=== PATIENT | male | born 1980 | race Caucasian/White ===

== ENCOUNTER 2017-11-16 19:22 | Emergency (ER) | payer OTHER ==
[~2017-11-16] VITALS: Ht 185.4 cm; Wt 127.0 kg
[2017-11-16] MEDS ORDERED: ATARAX,VISTARIL50 MG PO (20:26)
[2017-11-16] MEDS ORDERED: Kenalog 0.5% Cr15 GM T (20:26)
[2017-11-16] MEDS ORDERED: KEFLEX500 M1 PO (20:26)
== END 2017-11-16 20:49 | disposition home or self-care (01) ==
LOC: ED 19:22
DX: S40.862A Insect bite (nonvenomous) of left upper arm, initial encounter (principal); S60.862A Insect bite (nonvenomous) of left wrist, initial encounter; I89.1 Lymphangitis; W57.XXXA Bitten or stung by nonvenomous insect and other nonvenomous arthropods, initial encounter; Y93.89 Activity, other specified; Y92.89 Other specified places as the place of occurrence of the external cause; Y99.9 Unspecified external cause status

== ENCOUNTER 2017-12-28 12:43 | Emergency (ER) | payer OTHER ==
[~2017-12-28] VITALS: Ht 182.8 cm; Wt 129.3 kg
[~2017-12-28 12:43] MED LIST: ATARAX,VISTARIL50 MG PO; KEFLEX500 M1 PO; Kenalog 0.5% Cr15 GM T
[2017-12-28 13:08] LABS: BASO # 0.1 10*3/uL (0.0-0.1); BASO % 0.9 % (0.0-1.0); EOS # 0.3 10*3/uL (0.0-0.4); EOS % 3.6 % (1.0-4.0); HEMOGLOBIN 16.2 g/dl (14.0-18.0); LYMPH # 2.4 10*3/uL (1.3-4.4); LYMPH % 34.2 % (27.0-41.0); MEAN CELL VOLUME 80.9 fl (80.0-94.0); MEAN CORPUSCULAR HGB 27.9 pg (27.0-31.0); MEAN CORPUSCULAR HGB CONC 34.5 g/dl (33.0-37.0); MEAN PLATELET VOLUME 9.4 fl (9.6-12.3); MONO # 0.4 10*3/uL (0.1-1.0); MONO % 5.3 % (3.0-9.0); NEUT # 3.9 10*3/uL (2.3-7.9); NEUT % 55.7 % (47.0-73.0); PLATELET COUNT AUTOMATED 247 10*3/uL (130-400); RED BLOOD COUNT 5.81 10*6/uL (4.50-5.90); RED CELL DISTRI WIDTH 12.7 % (0-14.5); WHITE BLOOD COUNT 6.9 10*3/uL (4.8-10.8)
[2017-12-28 13:23] LABS: ALBUMIN 4.4 gm/dl (3.1-4.5); ALKALINE PHOSPHATASE 84 U/L (45-117); BUN 15 mg/dl (7-24); CHLORIDE 101 mmol/L (98-107); CREATININE 1.35 mg/dL (0.70-1.30); POTASSIUM 4.2 mmol/L (3.5-5.1); SGOT/AST 38 IU/L (3-35); SGPT/ALT 108 U/L (12-78); SODIUM 136 mmol/L (136-145); TOTAL PROTEIN 8.1 gm/dL (6.4-8.2)
[2017-12-28] MEDS ORDERED: ZOFRAN ODT4 MG SL (13:44)
== END 2017-12-28 14:19 | disposition home or self-care (01) ==
LOC: ED 12:43
PROVIDERS: Emergency Medicine
DX: E11.65 Type 2 diabetes mellitus with hyperglycemia (principal); Z79.4 Long term (current) use of insulin

== ENCOUNTER 2018-09-12 18:16 | Emergency (ER) | payer OTHER ==
[~2018-09-12] VITALS: Ht 185.4 cm; Wt 129.3 kg
--- NOTE | ~2018-09-12 | EKG ---
[place], [place] ELECTROCARDIOGRAM REPORT NAME: YOHANNES ARTEAGA UNIT #: [id number] ROOM: DOCTOR: EPIPHANY DRAFT REPORT BIRTHDATE: [birth year] [facility] Test Date: 2018-09-12 Test Time: 19:41:22 Pat Name: YOHANNES ARTEAGA Department: Room: Gender: Book Solicitor: Lisa Wood : 1980 Requested By: BISHOP LAZCANO Order Number: [id number] Reading MD: Troy Lam MD Measurements Intervals Nursery Rate: 107 P: 32 ND: 131 QRS: 44 QRSD: 99 T: 48 QT: 323 QTc: 431 Interpretive Statements Sinus tachycardia No previous ECG available for comparison Electronically Signed On 09-12-2018 20:14:29 PDT by Troy Lam MD CM:EKGRPT:ELECTROCARDIOGRAM REPORT 40 13 [employer] JULIAN DRAFT REPORT BISHOP LAZCANO DO
[~2018-09-12 18:16] MED LIST changes: +ZOFRAN ODT4 MG SL
[2018-09-12 19:41] LABS: BASO # 0.1 10*3/uL (0.0-0.1); BASO % 0.8 % (0.0-1.0); EOS # 0.5 10*3/uL (0.0-0.4); EOS % 5.6 % (1.0-4.0); HEMOGLOBIN 16.7 g/dl (14.0-18.0); LYMPH # 2.6 10*3/uL (1.3-4.4); LYMPH % 31.2 % (27.0-41.0); MEAN CELL VOLUME 82.2 fl (80.0-94.0); MEAN CORPUSCULAR HGB 28.6 pg (27.0-31.0); MEAN CORPUSCULAR HGB CONC 34.8 g/dl (33.0-37.0); MEAN PLATELET VOLUME 9.1 fl (9.6-12.3); MONO # 0.4 10*3/uL (0.1-1.0); NEUT # 4.7 10*3/uL (2.3-7.9); NEUT % 56.4 % (47.0-73.0); PLATELET COUNT AUTOMATED 240 10*3/uL (130-400); RED BLOOD COUNT 5.84 10*6/uL (4.50-5.90); RED CELL DISTRI WIDTH 13.2 % (0-14.5); WHITE BLOOD COUNT 8.4 10*3/uL (4.8-10.8)
[2018-09-12 19:57] LABS: ALBUMIN 4.1 gm/dl (3.1-4.5); ALKALINE PHOSPHATASE 82 U/L (45-117); BUN 14 mg/dl (7-24); CHLORIDE 103 mmol/L (98-107); CREATININE 1.19 mg/dL (0.70-1.30); POTASSIUM 4.3 mmol/L (3.5-5.1); SGOT/AST 50 IU/L (3-35); SGPT/ALT 152 U/L (12-78); SODIUM 139 mmol/L (136-145); TOTAL PROTEIN 8.2 gm/dL (6.4-8.2)
[2018-09-12 19:58] LABS: TROPONIN I < 0.015 ng/ml (<0.045)
[2018-09-12] MEDS ORDERED: PREDNISONE50 MG PO (20:08)
== END 2018-09-12 20:17 | disposition home or self-care (01) ==
LOC: ED 18:16
PROVIDERS: Student in an Organized Health Care Education/Training Program
DX: J45.901 Unspecified asthma with (acute) exacerbation (principal); E11.9 Type 2 diabetes mellitus without complications; R00.0 Tachycardia, unspecified; Z79.2 Long term (current) use of antibiotics; Z79.899 Other long term (current) drug therapy

== ENCOUNTER 2019-06-19 22:49 | Inpatient (IN) | payer OTHER ==
[~2019-06-19] VITALS: Ht 185.4 cm; Wt 134.9 kg
--- NOTE | ~2019-06-19 | EKG ---
[place], [place] ELECTROCARDIOGRAM REPORT NAME: YOHANNES ORO UNIT #: [id number] ROOM: 405 DOCTOR: JOJO DRAFT REPORT BIRTHDATE: [birth year] [facility] Test Date: 2019-06-20 Test Time: 00:20:02 Pat Name: YOHANNES ORO Department: Room: 405 Gender: M [employer]oles[employer] Broker: Maral Hadley : 1980 Requested By: BARON MUSE Order Number: [id number] Reading MD: Trang Oro MD Measurements Intervals [place] Rate: 112 P: 44 KS: 138 QRS: 36 QRSD: 108 T: -1 QT: 331 QTc: 452 Interpretive Statements Sinus tachycardia Probable inferior infarct, age indeterminate Baseline wander in lead(s) V2 Compared to ECG 09/12/2018 19:41:22 Myocardial infarct finding now present Electronically Signed On 06-21-2019 12:27:44 PDT by Trang Oro MD CM:EKGRPT:ELECTROCARDIOGRAM REPORT 0020 1227 BARON MUSE MD EPIPHANY DRAFT REPORT BARON MUSE MD
[~2019-06-19 22:49] MED LIST changes: +PREDNISONE50 MG PO
[2019-06-19 22:51] VITALS: BP 157/104
[2019-06-19 23:14] VITALS: BP 144/101
[2019-06-19 23:26] LABS: BILIRUBIN NEGATIVE (NEGATIVE); BLOOD NEGATIVE (NEGATIVE); CLARITY CLEAR (CLEAR); COLOR YELLOW (YELLOW); GLUCOSE 3+ (NEGATIVE); KETONE TRACE (NEGATIVE); LEUKO ESTERASE NEGATIVE (NEGATIVE); NITRITE NEGATIVE (NEGATIVE); SPECIFIC GRAVITY 1.015 (1.005-1.030); UROBILINOGEN 0.2 E.U./dl (0.2-1.0)
[2019-06-19 23:32] LABS: BACTERIA TRACE; EPITHELIAL CELLS 0-2; RBC 0-2 rbc/hpf (0-2); WBC 0-2 wbc/hpf (0-5)
[2019-06-20 00:01] LABS: BASO % 0.6 % (0.0-1.0); EOS # 0.2 10*3/uL (0.0-0.4); EOS % 2.9 % (1.0-4.0); HEMATOCRIT 43.8 % (42.0-52.0); HEMOGLOBIN 15.2 g/dl (14.0-18.0); LYMPH # 2.2 10*3/uL (1.3-4.4); MEAN CELL VOLUME 83.4 fl (80.0-94.0); MEAN CORPUSCULAR HGB CONC 34.7 g/dl (33.0-37.0); MEAN PLATELET VOLUME 9.3 fl (9.6-12.3); MONO # 0.4 10*3/uL (0.1-1.0); MONO % 5.7 % (3.0-9.0); NEUT # 3.7 10*3/uL (2.3-7.9); PLATELET COUNT AUTOMATED 242 10*3/uL (130-400); RED BLOOD COUNT 5.25 10*6/uL (4.50-5.90); RED CELL DISTRI WIDTH 12.3 % (0-14.5); WHITE BLOOD COUNT 6.5 10*3/uL (4.8-10.8)
[2019-06-20 00:12] LABS: ACT PARTIAL THROMBO TIME 24.5 SECONDS (20.0-32.1); INTERNATIONAL NORM RATIO 0.9 (2.0-3.5)
[2019-06-20 00:17] LABS: ALBUMIN 3.9 gm/dl (3.1-4.5); ALKALINE PHOSPHATASE 103 U/L (45-117); BUN 12 mg/dl (7-24); CHLORIDE 103 mmol/L (98-107); CREATININE 1.07 mg/dL (0.70-1.30); LIPASE 168 U/L (73-393); POTASSIUM 3.7 mmol/L (3.5-5.1); SGOT/AST 36 IU/L (3-35); SGPT/ALT 122 U/L (12-78); SODIUM 134 mmol/L (136-145); TOTAL PROTEIN 7.3 gm/dL (6.4-8.2)
[2019-06-20 00:18] LABS: TROPONIN I < 0.015 ng/ml (<0.045)
[2019-06-20 00:30] VITALS: BP 140/98
[2019-06-20 02:05] VITALS: BP 156/94; BP 157/94
[2019-06-20] MEDS ORDERED: BASAG SOL SQ (02:43)
[2019-06-20] MEDS ORDERED: OMEPRAZOLE D/R20 MG PO (02:44)
[2019-06-20] MEDS ORDERED: LISINOPRIL30 MG PO (02:44)
[2019-06-20] MEDS ORDERED: GABAPENTIN400 MG PO (02:44)
[2019-06-20] MEDS ORDERED: BUSPIRONE HCL15 MG PO (02:45)
[2019-06-20] MEDS ORDERED: VICTOZA 3-PAK6 MG/ML SC (02:46)
[2019-06-20] MEDS ORDERED: ATORVASTATIN CA20 M1 PO (02:47)
[2019-06-20] MEDS ORDERED: CLONIDINE0.3 MG PO (02:48)
[2019-06-20] MEDS ORDERED: MIRTAZAPINE15 M2 PO (02:49)
[2019-06-20] MEDS ORDERED: LAMOTRIGINE100 MG PO (02:49)
[2019-06-20] MEDS ORDERED: ARIPIPRAZOLE20 MG PO (02:50)
[2019-06-20] MEDS ORDERED: FLUTICASONE-SA1 EAC3 INH (02:51)
[2019-06-20 06:52] LABS: BASO % 0.6 % (0.0-1.0); EOS # 0.2 10*3/uL (0.0-0.4); HEMATOCRIT 40.9 % (42.0-52.0); HEMOGLOBIN 13.9 g/dl (14.0-18.0); LYMPH % 31.9 % (27.0-41.0); MEAN CELL VOLUME 83.5 fl (80.0-94.0); MEAN CORPUSCULAR HGB 28.4 pg (27.0-31.0); MEAN PLATELET VOLUME 9.2 fl (9.6-12.3); MONO # 0.6 10*3/uL (0.1-1.0); MONO % 8.9 % (3.0-9.0); NEUT # 3.4 10*3/uL (2.3-7.9); NEUT % 54.3 % (47.0-73.0); PLATELET COUNT AUTOMATED 208 10*3/uL (130-400); RED CELL DISTRI WIDTH 12.4 % (0-14.5); WHITE BLOOD COUNT 6.3 10*3/uL (4.8-10.8)
[2019-06-20 07:10] LABS: ACT PARTIAL THROMBO TIME 25.1 SECONDS (20.0-32.1); INTERNATIONAL NORM RATIO 0.9 (2.0-3.5)
[2019-06-20 07:15] LABS: BUN 13 mg/dl (7-24); CHLORIDE 107 mmol/L (98-107); POTASSIUM 3.7 mmol/L (3.5-5.1); SODIUM 139 mmol/L (136-145)
[2019-06-20 07:20] LABS: CHOLESTEROL 169 mg/dL (<200); HDL CHOLESTEROL 34 mg/dl (40-60); LDL CHOLESTEROL 93 mg/dL (9-159); PHOSPHOROUS 3.9 mg/dL (2.5-4.9); TRIGLYCERIDES 212 mg/dl (<150); VLDL CHOLESTEROL 42 mg/dL (6-40)
[2019-06-20 08:00] VITALS: BP 150/92
--- NOTE | 2019-06-20 11:30 | NUR ---
BSG 295. 10 UNITS OF INSULIN GIVEN PER S/S. WILL CONTINUE TO MONITOR.
--- NOTE | 2019-06-20 11:34 | NUR ---
IN TO SEE PATIENT.
[2019-06-20 11:36] LABS: VITAMIN D, 25-HYDROXY 16.4 ng/mL (30-100)
[2019-06-20 12:24] VITALS: BP 132/83
--- NOTE | 2019-06-20 14:51 | NUR ---
[employer] in to talk to patient. Patient states lives at home with family. There are few steps in the home. Physician: [facility] Home health services: none Patient's level of ADLs: INDEPENDENT Patient has working utilities: all working DME: none Follow-up physician's appointment after d/c: will be made by hospitalist nurse director upon discharge Does patient want to access PORTAL?: no Discharge plan discussed with patient, patient lives at home, is independent in adls and ambulation, he will be returning home when able and denies any home needs. TAI BOATENG
[2019-06-20 16:00] VITALS: BP 135/81
--- NOTE | 2019-06-20 16:16 | NUR ---
BSG 245. 5 UNITS OF INSULIN GIVEN PER S/S. WILL CONTINUE TO MONITOR. NO VOICED COMPLAINTS. IVF INITIATED PER ORDER.
[2019-06-20 20:00] VITALS: BP 125/71
--- NOTE | 2019-06-20 20:00 | NUR ---
BEDSIDE REPORT RECIEVED FROM BROOKLYN MEHTA. PATIENT AWAKE, ALERT AND ORIENTED. NO STATED COMPLAINTS AND NO S/S OF DISTRESS. RESPIRATIONS EASY AND REGULAR. BED IN LOWEST LOCKED POSITION AND CALL LIGHT WITHIN REACH.
[2019-06-21] VITALS: BP 111/70
[2019-06-21 06:29] LABS: BASO % 0.5 % (0.0-1.0); EOS # 0.2 10*3/uL (0.0-0.4); EOS % 4.2 % (1.0-4.0); HEMATOCRIT 41.6 % (42.0-52.0); HEMOGLOBIN 13.8 g/dl (14.0-18.0); LYMPH # 1.9 10*3/uL (1.3-4.4); LYMPH % 33.1 % (27.0-41.0); MEAN CELL VOLUME 84.7 fl (80.0-94.0); MEAN CORPUSCULAR HGB 28.1 pg (27.0-31.0); MEAN CORPUSCULAR HGB CONC 33.2 g/dl (33.0-37.0); MONO # 0.5 10*3/uL (0.1-1.0); MONO % 8.6 % (3.0-9.0); NEUT % 52.9 % (47.0-73.0); PLATELET COUNT AUTOMATED 202 10*3/uL (130-400); RED BLOOD COUNT 4.91 10*6/uL (4.50-5.90); RED CELL DISTRI WIDTH 12.5 % (0-14.5); WHITE BLOOD COUNT 5.7 10*3/uL (4.8-10.8)
[2019-06-21 07:00] LABS: BUN 12 mg/dl (7-24); CHLORIDE 108 mmol/L (98-107); CREATININE 0.87 mg/dL (0.70-1.30); PHOSPHOROUS 4.1 mg/dL (2.5-4.9); POTASSIUM 4.1 mmol/L (3.5-5.1); SODIUM 139 mmol/L (136-145)
[2019-06-21 08:00] VITALS: BP 106/80
--- NOTE | 2019-06-21 09:00 | NUR ---
case management visits with patient, he states he will return home when medically stable and denies any home needs
[2019-06-21 12:00] VITALS: BP 116/60
[2019-06-21] MEDS ORDERED: PEN NEEDLE1 EAC1 MC (12:50)
[2019-06-21] MEDS ORDERED: TEST STRIPS1 EACH MC (12:50)
[2019-06-21] MEDS ORDERED: FENOFIBRATE145 M1 PO (12:50)
[2019-06-21] MEDS ORDERED: ACCU-CHEK FAST1 EACH MC (12:50)
[2019-06-21] MEDS ORDERED: Humalog SQ (12:50)
--- NOTE | 2019-06-21 14:37 | NUR ---
Nutritional Support Service Note: Pt was triggered for DM education. We discussed ADA 1800 calorie diet in detail and I provided him with a diet copy. He states he has been trying to limit CHO consumption because they're "bad" for him. I explained why a consistent intake of calories, CHO, PRO, and fat are all important for BG maintenance and that simple sugars such as cakes, cookies, pops in excess amounts may lt issues. Pt has good undestanding of material. Scott Wiggins Float Phlebotomist Dietitian
[2019-06-21 16:00] VITALS: BP 122/63
--- NOTE | 2019-06-21 16:38 | NUR ---
MSDIS Discharge instructions reviewed with patient/family. Patient receptive and verbalizes understanding. Follow-up care arranged. Written instructions given to patient/family. SHANEL ZARAGOZA
== END 2019-06-21 16:38 | disposition home or self-care (01) | DRG 638 ==
LOC: ED 22:49 → 4E 06-20 01:39 → EDHOLD 06-20 01:39 → 4E 06-20 01:57
PROVIDERS: Emergency Medicine Emergency Medical Services; Internal Medicine; Student in an Organized Health Care Education/Training Program; ADMIT Internal Medicine
DX: E10.65 Type 1 diabetes mellitus with hyperglycemia (principal); E87.1 Hypo-osmolality and hyponatremia; R74.0 Nonspecific elevation of levels of transaminase and lactic acid dehydrogenase [LDH]; J45.40 Moderate persistent asthma, uncomplicated; E66.9 Obesity, unspecified; E78.1 Pure hyperglyceridemia; F31.9 Bipolar disorder, unspecified; I10 Essential (primary) hypertension; F10.10 Alcohol abuse, uncomplicated; F12.10 Cannabis abuse, uncomplicated; D64.9 Anemia, unspecified; E78.5 Hyperlipidemia, unspecified; R00.0 Tachycardia, unspecified; Z68.39 Body mass index [BMI] 39.0-39.9, adult; Z79.899 Other long term (current) drug therapy; Z79.4 Long term (current) use of insulin; Z90.49 Acquired absence of other specified parts of digestive tract; Z84.89 Family history of other specified conditions

== ENCOUNTER 2019-07-10 17:47 | Emergency (ER) | payer OTHER ==
[~2019-07-10] VITALS: Ht 185.4 cm; Wt 131.5 kg
[~2019-07-10 17:47] MED LIST changes: +ACCU-CHEK FAST1 EACH MC; +ARIPIPRAZOLE20 MG PO; +ATORVASTATIN CA20 M1 PO; +BASAG SOL SQ; +BUSPIRONE HCL15 MG PO; +CLONIDINE0.3 MG PO; +FENOFIBRATE145 M1 PO; +FLUTICASONE-SA1 EAC3 INH; +GABAPENTIN400 MG PO; +Humalog SQ; +LAMOTRIGINE100 MG PO; +LISINOPRIL30 MG PO; +MIRTAZAPINE15 M2 PO; +OMEPRAZOLE D/R20 MG PO; +PEN NEEDLE1 EAC1 MC; +TEST STRIPS1 EACH MC; +VICTOZA 3-PAK6 MG/ML SC
[2019-07-10 18:26] LABS: BASO % 0.4 % (0.0-1.0); EOS # 0.3 10*3/uL (0.0-0.4); EOS % 3.9 % (1.0-4.0); HEMATOCRIT 44.4 % (42.0-52.0); LYMPH # 1.9 10*3/uL (1.3-4.4); MEAN CORPUSCULAR HGB CONC 33.8 g/dl (33.0-37.0); MEAN PLATELET VOLUME 9.5 fl (9.6-12.3); MONO # 0.5 10*3/uL (0.1-1.0); NEUT # 5.7 10*3/uL (2.3-7.9); NEUT % 67.2 % (47.0-73.0); PLATELET COUNT AUTOMATED 245 10*3/uL (130-400); RED BLOOD COUNT 5.35 10*6/uL (4.50-5.90); RED CELL DISTRI WIDTH 12.6 % (0-14.5); WHITE BLOOD COUNT 8.5 10*3/uL (4.8-10.8)
[2019-07-10 18:41] LABS: ALBUMIN 4.1 gm/dl (3.1-4.5); ALKALINE PHOSPHATASE 93 U/L (45-117); BUN 14 mg/dl (7-24); CHLORIDE 106 mmol/L (98-107); CREATININE 1.19 mg/dL (0.70-1.30); SGOT/AST 42 IU/L (3-35); SGPT/ALT 133 U/L (12-78); SODIUM 138 mmol/L (136-145); TOTAL PROTEIN 7.5 gm/dL (6.4-8.2)
[2019-07-10] MEDS ORDERED: CEPHALEXIN500 M1 PO (18:51)
[2019-07-10] MEDS ORDERED: SEPTDS PO (18:51)
== END 2019-07-10 19:05 | disposition home or self-care (01) ==
LOC: ED 17:47
PROVIDERS: Nurse Practitioner Family
DX: L03.114 Cellulitis of left upper limb (principal); L03.113 Cellulitis of right upper limb; E66.9 Obesity, unspecified; E10.9 Type 1 diabetes mellitus without complications; J45.909 Unspecified asthma, uncomplicated; I10 Essential (primary) hypertension; Z79.4 Long term (current) use of insulin; Z79.899 Other long term (current) drug therapy; Z68.39 Body mass index [BMI] 39.0-39.9, adult

== ENCOUNTER 2019-12-20 19:33 | Emergency (ER) | payer OTHER ==
[~2019-12-20] VITALS: Ht 185.4 cm; Wt 136.1 kg
[~2019-12-20 19:33] MED LIST changes: +CEPHALEXIN500 M1 PO; +SEPTDS PO
[2019-12-20 20:21] LABS: BASO # 0.1 10*3/uL (0.0-0.1); BASO % 0.6 % (0.0-1.0); EOS # 0.4 10*3/uL (0.0-0.4); EOS % 5.2 % (1.0-4.0); HEMATOCRIT 41.6 % (42.0-52.0); HEMOGLOBIN 13.7 g/dl (14.0-18.0); LYMPH # 2.5 10*3/uL (1.3-4.4); LYMPH % 29.6 % (27.0-41.0); MEAN CELL VOLUME 82.1 fl (80.0-94.0); MEAN CORPUSCULAR HGB CONC 32.9 g/dl (33.0-37.0); MONO # 0.4 10*3/uL (0.1-1.0); MONO % 4.4 % (3.0-9.0); NEUT # 5.1 10*3/uL (2.3-7.9); NEUT % 59.8 % (47.0-73.0); PLATELET COUNT AUTOMATED 252 10*3/uL (130-400); RED BLOOD COUNT 5.07 10*6/uL (4.50-5.90); RED CELL DISTRI WIDTH 13.2 % (0-14.5); WHITE BLOOD COUNT 8.4 10*3/uL (4.8-10.8)
[2019-12-20 20:43] LABS: ALBUMIN 3.9 gm/dl (3.1-4.5); ALKALINE PHOSPHATASE 75 U/L (45-117); BUN 14 mg/dl (7-24); CHLORIDE 111 mmol/L (98-107); CREATININE 1.21 mg/dL (0.70-1.30); POTASSIUM 3.6 mmol/L (3.5-5.1); SGOT/AST 13 IU/L (3-35); SGPT/ALT 43 U/L (12-78); SODIUM 142 mmol/L (136-145)
[2019-12-20] MEDS ORDERED: TESSALON PERLE100 M1 PO (22:21)
== END 2019-12-20 22:31 | disposition home or self-care (01) ==
LOC: ED 19:33
PROVIDERS: Emergency Medicine
DX: J06.9 Acute upper respiratory infection, unspecified (principal); J45.909 Unspecified asthma, uncomplicated; I10 Essential (primary) hypertension; E78.1 Pure hyperglyceridemia; E66.9 Obesity, unspecified; E10.9 Type 1 diabetes mellitus without complications; Z79.2 Long term (current) use of antibiotics; Z79.4 Long term (current) use of insulin; Z79.899 Other long term (current) drug therapy; Z68.30 Body mass index [BMI] 30.0-30.9, adult